=== PATIENT | female | born 1960 | race Caucasian/White ===

== ENCOUNTER 2018-02-01 12:21 | Emergency (ER) | payer MEDICAID ==
[2018-02-01 14:05] LABS: ADD MAN DIFF? NO
[2018-02-01 14:07] LABS: ABNORMAL IP MESSAGE 1; BASOPHILS % 0.6 % (0.0-2.0); EOSINOPHILS # 0.5 10^3/ul (0.0-0.5); EOSINOPHILS % 7.6 % (0.0-7.0); HEMATOCRIT 35.9 % (37.0-47.0); HEMOGLOBIN 11.8 g/dl (12.0-16.0); LYMPHOCYTES # 1.9 10^3/ul (0.8-2.9); LYMPHOCYTES % 26.9 % (15.0-51.0); MEAN CORPUSCULAR HEMOGLOBIN 27.2 pg (29.0-33.0); MEAN CORPUSCULAR HGB CONC 32.9 g/dl (32.0-37.0); MEAN CORPUSCULAR VOLUME 82.7 fl (82.0-101.0); MEAN PLATELET VOLUME 11.4 fl (7.4-10.4); MONOCYTE # 0.6 10^3/ul (0.3-0.9); MONOCYTES % 8.2 % (0.0-11.0); NEUTROPHIL # 3.9 10^3/ul (1.6-7.5); NEUTROPHILS % 56.6 % (39.0-77.0); PLATELET COUNT 234 10^3/UL (140-415); RED BLOOD COUNT 4.34 10^6/ul (4.20-5.40); RED CELL DISTRIBUTION WIDTH 13.3 % (11.5-14.5)
[2018-02-01 14:07] LABS: WHITE BLOOD COUNT 6.9 10^3/ul (4.8-10.8)
[2018-02-01 14:09] LABS: POSITIVE DIFF @See below
[2018-02-01 14:32] LABS: ANION GAP 17 (8-16); BLOOD UREA NITROGEN 13 mg/dl (7-20); CALCIUM 8.8 mg/dl (8.4-10.2); CARBON DIOXIDE 25 mmol/L (21-31); CHLORIDE 108 mmol/L (97-110); CREATININE 0.67 mg/dl (0.44-1.00); GLUCOSE 175 mg/dl (70-220); POTASSIUM 4.3 mmol/L (3.5-5.1); SODIUM 146 mmol/L (135-144)
[2018-02-01 14:48] LABS: TROPONIN-I < 0.012 ng/ml (0.00-0.12)
[2018-02-01 15:00] LABS: D-DIMER 2072.27 ng/ml (<460)
[2018-02-01] MEDS: IOHEXOL 100 ML (15:51)
[2018-02-01] MEDS: SOD CHLORIDE 0.9% 100 ML (15:51)
== END 2018-02-01 17:29 | disposition home or self-care (01) ==
LOC: FTE 12:21
DX: J18.9 Pneumonia, unspecified organism (principal); I10 Essential (primary) hypertension; E11.9 Type 2 diabetes mellitus without complications; Z79.4 Long term (current) use of insulin
CPT/HCPCS: 71045; 71275; 80048; 84484; 85025; 85378; 93005; 99285-25

== ENCOUNTER 2018-02-06 11:50 | Emergency (ER) | payer MEDICAID ==
[2018-02-06 17:22] LABS: ADD MAN DIFF? NO
[2018-02-06] MEDS: FAMOTIDINE 20 MG INJ IV (17:24)
[2018-02-06 17:25] LABS: BASOPHILS % 0.4 % (0.0-2.0); EOSINOPHILS # 0.3 10^3/ul (0.0-0.5); EOSINOPHILS % 3.7 % (0.0-7.0); HEMATOCRIT 40.3 % (37.0-47.0); HEMOGLOBIN 13.4 g/dl (12.0-16.0); LYMPHOCYTES # 2.6 10^3/ul (0.8-2.9); LYMPHOCYTES % 38.7 % (15.0-51.0); MEAN CORPUSCULAR HEMOGLOBIN 27.3 pg (29.0-33.0); MEAN CORPUSCULAR HGB CONC 33.3 g/dl (32.0-37.0); MEAN CORPUSCULAR VOLUME 82.1 fl (82.0-101.0); MEAN PLATELET VOLUME 10.6 fl (7.4-10.4); MONOCYTE # 0.6 10^3/ul (0.3-0.9); MONOCYTES % 9.2 % (0.0-11.0); NEUTROPHIL # 3.2 10^3/ul (1.6-7.5); NEUTROPHILS % 47.7 % (39.0-77.0); PLATELET COUNT 245 10^3/UL (140-415); RED BLOOD COUNT 4.91 10^6/ul (4.20-5.40); RED CELL DISTRIBUTION WIDTH 13.2 % (11.5-14.5)
[2018-02-06 17:25] LABS: WHITE BLOOD COUNT 6.7 10^3/ul (4.8-10.8)
[2018-02-06] MEDS: LIDOCAINE/MYLANTA 40 ML BTL PO (17:25)
[2018-02-06] MEDS: BELLADONNA/PHENOBARBITAL TAB PO (17:25)
[2018-02-06] MEDS: SOD CHLORIDE 0.9% 1,000 ML IV (17:25)
[2018-02-06 17:54] LABS: ANION GAP 16 (8-16); BLOOD UREA NITROGEN 17 mg/dl (7-20); CALCIUM 9.7 mg/dl (8.4-10.2); CARBON DIOXIDE 27 mmol/L (21-31); CHLORIDE 105 mmol/L (97-110); CREATININE 0.72 mg/dl (0.44-1.00); GLUCOSE 97 mg/dl (70-220); SODIUM 144 mmol/L (135-144)
[2018-02-06 18:08] LABS: TROPONIN-I < 0.012 ng/ml (0.00-0.12)
[2018-02-06] MEDS: SOD CHLORIDE 0.9% 100 ML (18:34)
[2018-02-06] MEDS: IOHEXOL 100 ML (18:34)
== END 2018-02-06 20:36 | disposition home or self-care (01) ==
LOC: E/R 20:36
DX: R07.89 Other chest pain (principal); I10 Essential (primary) hypertension; E11.9 Type 2 diabetes mellitus without complications; Z79.84 Long term (current) use of oral hypoglycemic drugs
CPT/HCPCS: 36415; 71045; 71275; 80048; 84484; 85025; 93005; 96374; 99285-25

== ENCOUNTER 2018-12-07 16:05 | Emergency (ER) | payer MEDICAID | END 2018-12-07 21:15 | disposition home or self-care (01) | LOC: FTE 16:05 | DX: H53.8 Other visual disturbances (principal); I10 Essential (primary) hypertension; E11.9 Type 2 diabetes mellitus without complications; Z79.4 Long term (current) use of insulin | CPT/HCPCS: 76536; 99284-25 ==

== ENCOUNTER 2019-03-20 14:15 | Observation (INO) | payer MEDICAID ==
[2019-03-20 15:11] LABS: ADD MAN DIFF? NO
[2019-03-20 15:13] LABS: BASOPHILS % 0.3 % (0.0-2.0); EOSINOPHILS # 0.2 10^3/ul (0.0-0.5); EOSINOPHILS % 2.2 % (0.0-7.0); HEMATOCRIT 43.9 % (37.0-47.0); LYMPHOCYTES # 2.8 10^3/ul (0.8-2.9); LYMPHOCYTES % 35.4 % (15.0-51.0); MEAN CORPUSCULAR HEMOGLOBIN 26.6 pg (29.0-33.0); MEAN CORPUSCULAR HGB CONC 31.9 g/dl (32.0-37.0); MEAN CORPUSCULAR VOLUME 83.5 fl (82.0-101.0); MONOCYTE # 0.8 10^3/ul (0.3-0.9); MONOCYTES % 10.7 % (0.0-11.0); NEUTROPHILS % 51.1 % (39.0-77.0); PLATELET COUNT 237 10^3/UL (140-415); RED BLOOD COUNT 5.26 10^6/ul (4.20-5.40); RED CELL DISTRIBUTION WIDTH 13.1 % (11.5-14.5)
[2019-03-20 15:13] LABS: WHITE BLOOD COUNT 7.9 10^3/ul (4.8-10.8)
[2019-03-20] MEDS: SOD CHLORIDE 0.9% 1,000 ML IV ×2 (15:14→16:58)
[2019-03-20] MEDS: ASPIRIN 325 MG TAB PO (15:14)
[2019-03-20 15:33] LABS: ALANINE AMINOTRANSFERASE 21 IU/L (13-69); ALBUMIN 3.9 g/dl (3.3-4.9); ALBUMIN/GLOBULIN RATIO 1.14; ALKALINE PHOSPHATASE 68 IU/L (42-121); ANION GAP 6 (5-13); ASPARTATE AMINO TRANSFERASE 29 IU/L (15-46); BILIRUBIN,INDIRECT 0.3 mg/dl (0-1.1); BILIRUBIN,TOTAL 0.3 mg/dl (0.2-1.3); BLOOD UREA NITROGEN 21 mg/dl (7-20); CARBON DIOXIDE 28 mmol/L (21-31); CHLORIDE 109 mmol/L (97-110); CHOL/HDL RATIO 6.5 RATIO; CHOLESTEROL 262 mg/dl (100-200); CREATININE 0.71 mg/dl (0.44-1.00); Estimated GFR > 60 mL/min (>60); GLUCOSE 90 mg/dl (70-220); HDL CHOLESTEROL 40 mg/dl (35-98); INR 0.83; LDL CHOLESTEROL,CALCULATED 140 mg/dl; POTASSIUM 4.6 mmol/L (3.5-5.1); PROTIME 11.5 Sec (11.9-14.9); PT RATIO 0.9; SODIUM 143 mmol/L (135-144); TOTAL PROTEIN 7.3 g/dl (6.1-8.1); TRIGLYCERIDES 409 mg/dl (0-149)
[2019-03-20 15:40] LABS: HEMOGLOBIN A1C 12.1 % (0-5.9)
[2019-03-20 15:44] LABS: TROPONIN-I < 0.012 ng/ml (0.000-0.120)
[2019-03-20] MEDS ORDERED: DOCUSATE SODIUM 100 MG CAP PO (17:00)
[2019-03-20] MEDS ORDERED: ONDANSETRON 4 MG INJ IV ×2 (17:00)
[2019-03-20] MEDS ORDERED: ACETAMINOPHEN 325 MG TAB PO (17:00)
[2019-03-20] MEDS ORDERED: NACL 0.9% 3 ML SYG IV (17:00)
[2019-03-20] MEDS ORDERED: MAGNESIUM HYDROXIDE 30ML CUP PO (17:00)
[2019-03-20] MEDS ORDERED: GLUCOSE GEL 15 GRAM TUBE BUCCAL (17:30)
[2019-03-20] MEDS ORDERED: DEXTROSE 50% 50 ML SYRINGE IV ×2 (17:30)
[2019-03-20] MEDS ORDERED: GLUCAGON 1 MG INJ IM (17:30)
[2019-03-20] MEDS ORDERED: GLUCOSE GEL 15 GRAM TUBE PO ×2 (17:30)
[2019-03-20] MEDS: INSULIN ASPART [NOVOLOG] 3 ML PEN SC ×3 (18:00→21:00)
[2019-03-20] MEDS ORDERED: LABETALOL HCL 20MG INJ IV (19:30)
[2019-03-20] MEDS: ACETAMINOPHEN 325 MG TAB PO (20:18)
[2019-03-20] MEDS: ATORVASTATIN 80 MG TAB PO (21:21)
[2019-03-20] MEDS: GABAPENTIN 300 MG CAP PO (21:21)
[2019-03-20] MEDS: FAMOTIDINE 20 MG INJ IV (21:22)
[2019-03-20] MEDS: INSULIN GLARGINE [LANTus] (100 UNITS/ML) SYG SC (21:49)
[2019-03-21 06:42] LABS: ADD MAN DIFF? NO
[2019-03-21 06:52] LABS: BASOPHILS % 0.4 % (0.0-2.0); EOSINOPHILS # 0.2 10^3/ul (0.0-0.5); EOSINOPHILS % 3.1 % (0.0-7.0); HEMATOCRIT 40.8 % (37.0-47.0); HEMOGLOBIN 13.1 g/dl (12.0-16.0); LYMPHOCYTES # 1.9 10^3/ul (0.8-2.9); LYMPHOCYTES % 35.4 % (15.0-51.0); MEAN CORPUSCULAR HEMOGLOBIN 26.7 pg (29.0-33.0); MEAN CORPUSCULAR HGB CONC 32.1 g/dl (32.0-37.0); MEAN CORPUSCULAR VOLUME 83.3 fl (82.0-101.0); MONOCYTE # 0.6 10^3/ul (0.3-0.9); MONOCYTES % 11.2 % (0.0-11.0); NEUTROPHIL # 2.7 10^3/ul (1.6-7.5); NEUTROPHILS % 49.7 % (39.0-77.0); PLATELET COUNT 221 10^3/UL (140-415)
[2019-03-21 06:52] LABS: WHITE BLOOD COUNT 5.5 10^3/ul (4.8-10.8)
[2019-03-21 07:15] LABS: ANION GAP 6 (5-13); BLOOD UREA NITROGEN 21 mg/dl (7-20); CARBON DIOXIDE 26 mmol/L (21-31); CHLORIDE 109 mmol/L (97-110); CREATININE 0.68 mg/dl (0.44-1.00); Estimated GFR > 60 mL/min (>60); GLUCOSE 102 mg/dl (70-220); SODIUM 141 mmol/L (135-144)
[2019-03-21] MEDS: INSULIN ASPART [NOVOLOG] 3 ML PEN SC ×7 (07:49→21:00)
[2019-03-21] MEDS: FAMOTIDINE 20 MG INJ IV ×2 (08:16→20:58)
[2019-03-21] MEDS: GABAPENTIN 300 MG CAP PO ×2 (08:17→20:58)
[2019-03-21] MEDS: ASPIRIN 81 MG TAB PO (08:36)
[2019-03-21] MEDS: ATORVASTATIN 80 MG TAB PO (20:58)
[2019-03-21] MEDS: INSULIN GLARGINE [LANTus] (100 UNITS/ML) SYG SC (20:59)
[2019-03-22 06:26] LABS: ADD MAN DIFF? NO
[2019-03-22 06:33] LABS: WHITE BLOOD COUNT 6.4 10^3/ul (4.8-10.8)
[2019-03-22 06:33] LABS: BASOPHILS % 0.5 % (0.0-2.0); EOSINOPHILS # 0.2 10^3/ul (0.0-0.5); EOSINOPHILS % 3.1 % (0.0-7.0); HEMATOCRIT 41.5 % (37.0-47.0); HEMOGLOBIN 13.7 g/dl (12.0-16.0); LYMPHOCYTES # 2.2 10^3/ul (0.8-2.9); LYMPHOCYTES % 34.4 % (15.0-51.0); MEAN CORPUSCULAR HEMOGLOBIN 27.1 pg (29.0-33.0); MEAN CORPUSCULAR VOLUME 82.2 fl (82.0-101.0); MEAN PLATELET VOLUME 10.8 fl (7.4-10.4); MONOCYTE # 0.6 10^3/ul (0.3-0.9); MONOCYTES % 9.7 % (0.0-11.0); NEUTROPHIL # 3.3 10^3/ul (1.6-7.5); NEUTROPHILS % 52.1 % (39.0-77.0); PLATELET COUNT 219 10^3/UL (140-415); RED BLOOD COUNT 5.05 10^6/ul (4.20-5.40); RED CELL DISTRIBUTION WIDTH 13.2 % (11.5-14.5)
[2019-03-22 07:09] LABS: ALBUMIN 3.2 g/dl (3.3-4.9); ANION GAP 7 (5-13); BLOOD UREA NITROGEN 26 mg/dl (7-20); CALCIUM 9.1 mg/dl (8.4-10.2); CARBON DIOXIDE 26 mmol/L (21-31); CHLORIDE 107 mmol/L (97-110); CREATININE 0.73 mg/dl (0.44-1.00); GLUCOSE 137 mg/dl (70-220); MAGNESIUM 1.8 mg/dl (1.7-2.5); PHOSPHORUS 4.2 mg/dl (2.5-4.9); SODIUM 140 mmol/L (135-144)
[2019-03-22] MEDS: INSULIN ASPART [NOVOLOG] 3 ML PEN SC ×4 (07:52→11:50)
[2019-03-22] MEDS: FAMOTIDINE 20 MG INJ IV (08:17)
[2019-03-22] MEDS: GABAPENTIN 300 MG CAP PO (08:17)
[2019-03-22] MEDS: ASPIRIN 81 MG TAB PO (08:17)
[2019-03-22 16:52] LABS: ADD UMIC YES; UR ASCORBIC ACID NEGATIVE (NEGATIVE); UR BACTERIA FEW /HPF (NONE SEEN); UR BILIRUBIN (Dip) NEGATIVE (NEGATIVE); UR BLOOD (Dip) NEGATIVE (NEGATIVE); UR CLARITY SLIGHTLY CLOUDY (CLEAR); UR COLOR STRAW (YELLOW); UR GLUCOSE (Dip) NEGATIVE (NEGATIVE); UR KETONES (Dip) NEGATIVE (NEGATIVE); UR LEUKOCYTE ESTERASE (Dip) NEGATIVE Leu/ul (NEGATIVE); UR NITRITE (Dip) NEGATIVE (NEGATIVE); UR RBC 1 /HPF (0-5); UR SQUAMOUS EPITHELIAL CELL FEW /HPF (FEW); UR TOTAL PROTEIN (Dip) 2+ mg/dl (NEGATIVE); UR UROBILINOGEN (Dip) NEGATIVE (NEGATIVE); UR WBC 13 /HPF (0-5)
[2019-03-22] MEDS ORDERED: FAMOTIDINE 20 MG TAB PO (21:00)
== END 2019-03-22 18:59 | disposition home or self-care (01) ==
LOC: E/R 14:15 → TEL 16:46
DX: G45.9 Transient cerebral ischemic attack, unspecified (principal); I10 Essential (primary) hypertension; E78.00 Pure hypercholesterolemia, unspecified; E78.5 Hyperlipidemia, unspecified; E11.9 Type 2 diabetes mellitus without complications; Z79.4 Long term (current) use of insulin; E88.81 Metabolic syndrome and other insulin resistance
CPT/HCPCS: 36415; 70450; 70545; 70548; 70552; 71045; 80048; 80053; 80061; 80069; 81001; 82962; 83036; 83735; 84443; 84484; 85025; 85610; 85730; 93005; 93306; 97161; 99285-25; G0378

== ENCOUNTER 2019-05-17 12:20 | Emergency (ER) | payer MEDICAID ==
[2019-05-17 15:29] LABS: ADD MAN DIFF? NO
[2019-05-17] MEDS: SOD CHLORIDE 0.9% 630 ML IV (15:30)
[2019-05-17 15:31] LABS: BASOPHILS % 0.4 % (0.0-2.0); EOSINOPHILS # 0.2 10^3/ul (0.0-0.5); EOSINOPHILS % 3.6 % (0.0-7.0); HEMATOCRIT 42.8 % (37.0-47.0); HEMOGLOBIN 14.2 g/dl (12.0-16.0); LYMPHOCYTES # 1.7 10^3/ul (0.8-2.9); LYMPHOCYTES % 31.6 % (15.0-51.0); MEAN CORPUSCULAR HGB CONC 33.2 g/dl (32.0-37.0); MEAN CORPUSCULAR VOLUME 81.5 fl (82.0-101.0); MEAN PLATELET VOLUME 12.1 fl (7.4-10.4); MONOCYTE # 0.4 10^3/ul (0.3-0.9); MONOCYTES % 8.2 % (0.0-11.0); NEUTROPHIL # 2.9 10^3/ul (1.6-7.5); NEUTROPHILS % 55.8 % (39.0-77.0); PLATELET COUNT 190 10^3/UL (140-415); RED BLOOD COUNT 5.25 10^6/ul (4.20-5.40); RED CELL DISTRIBUTION WIDTH 12.8 % (11.5-14.5)
[2019-05-17 15:31] LABS: WHITE BLOOD COUNT 5.3 10^3/ul (4.8-10.8)
[2019-05-17 15:32] LABS: URINE PH (Dip) POC 6.5 (5.0-8.5)
[2019-05-17 15:32] LABS: URINE BLOOD (Dip) POC Trace-lysed (NEGATIVE); URINE KETONES (Dip) POC Negative (NEGATIVE); URINE LEUKOCYTE EST (Dip) POC Negative (NEGATIVE); URINE NITRITE (Dip) POC Negative (NEGATIVE); URINE TOTAL PROTEIN POC 3+ (NEGATIVE)
[2019-05-17 15:48] LABS: ANION GAP 7 (5-13); BLOOD UREA NITROGEN 15 mg/dl (7-20); CALCIUM 8.8 mg/dl (8.4-10.2); CARBON DIOXIDE 27 mmol/L (21-31); CHLORIDE 103 mmol/L (97-110); CREATININE 0.94 mg/dl (0.44-1.00); Estimated GFR > 60 mL/min (>60); POTASSIUM 4.7 mmol/L (3.5-5.1); SODIUM 137 mmol/L (135-144)
[2019-05-17 15:48] LABS: PHOSPHORUS 3.3 mg/dl (2.5-4.9)
[2019-05-17 15:50] LABS: GLUCOSE 430 mg/dl (70-220)
[2019-05-17 15:54] LABS: ADD UMIC YES; UR ASCORBIC ACID NEGATIVE (NEGATIVE); UR BACTERIA FEW /HPF (NONE SEEN); UR BILIRUBIN (Dip) NEGATIVE (NEGATIVE); UR BLOOD (Dip) NEGATIVE (NEGATIVE); UR CLARITY SLIGHTLY CLOUDY (CLEAR); UR COLOR YELLOW (YELLOW); UR GLUCOSE (Dip) 3+ mg/dL (NEGATIVE); UR KETONES (Dip) NEGATIVE (NEGATIVE); UR LEUKOCYTE ESTERASE (Dip) 1+ Leu/ul (NEGATIVE); UR NITRITE (Dip) NEGATIVE (NEGATIVE); UR RBC 3 /HPF (0-5); UR SQUAMOUS EPITHELIAL CELL MODERATE /HPF (FEW); UR TOTAL PROTEIN (Dip) 2+ mg/dl (NEGATIVE); UR UROBILINOGEN (Dip) NEGATIVE (NEGATIVE); UR WBC 14 /HPF (0-5)
[2019-05-17 15:59] LABS: TROPONIN-I < 0.012 ng/ml (0.000-0.120)
[2019-05-17] MEDS: MECLIZINE 12.5 MG TAB PO (17:36)
[2019-05-17] MEDS: INSULIN LISPRO 100 UNIT/ML VIAL SC (17:40)
[2019-05-17] MEDS: ACCU-CHEK XX (18:45)
== END 2019-05-17 19:58 | disposition home or self-care (01) ==
LOC: E/R 12:20
DX: N39.0 Urinary tract infection, site not specified (principal); E11.65 Type 2 diabetes mellitus with hyperglycemia; R94.31 Abnormal electrocardiogram [ECG] [EKG]; I10 Essential (primary) hypertension; E66.9 Obesity, unspecified; Z68.27 Body mass index [BMI] 27.0-27.9, adult; Z79.82 Long term (current) use of aspirin; Z79.4 Long term (current) use of insulin
CPT/HCPCS: 36415; 70450; 80048; 81001; 81003; 82962; 83735; 84100; 84484; 85025; 93005; 96360; 96372; 99285-25